=== PATIENT | female | born 1985 | race African-American/Black ===

== ENCOUNTER 2017-12-08 06:18 | Emergency (ER) | payer MEDICAID ==
[~2017-12-08] VITALS: Ht 160 cm; Wt 106.0 kg
[2017-12-08 06:31] VITALS: BP 122/77
== END 2017-12-08 09:23 | disposition left against medical advice (07) ==
LOC: ER 06:18
DX: M54.9 Dorsalgia, unspecified (principal); Z53.21 Procedure and treatment not carried out due to patient leaving prior to being seen by health care provider

== ENCOUNTER 2018-05-31 19:41 | Emergency (ER) | payer MEDICAID ==
[~2018-05-31] VITALS: Ht 160 cm; Wt 114.0 kg
[2018-05-31 23:10] LABS: BASOPHILS % 0.2 % (0.0-2.0); EOSINOPHILS % 2.3 % (0.0-5.0); HEMATOCRIT. 36.3 % (36.0-48.0); HEMOGLOBIN. 11.8 g/dL (12.0-16.0); LYMPHOCYTES % 38.5 % (20.0-50.0); MEAN CORPUSCULAR VOLUME 83.1 fL (81.0-99.0); MEAN PLATELET VOLUME 7.7 fl (7.4-10.4); MONOCYTES % 4.1 % (2.0-8.0); NEUTROPHILS % 54.9 % (40.0-76.0); PLATELET 313 x1000/uL (130-400); RED BLOOD CELL COUNT 4.37 mill/uL (4.2-5.4); RED CELL DISTRIBUTION WIDTH 14.9 % (11.6-14.6)
[2018-05-31 23:34] LABS: HCG SCREEN NEGATIVE
[2018-06-01 00:10] VITALS: BP 137/76
[2018-06-01] MEDS ORDERED: KETOROLAC 60MG/2ML VIAL IM ONE (00:15)
== END 2018-06-01 01:59 | disposition home or self-care (01) ==
LOC: ER 19:41
DX: N93.8 Other specified abnormal uterine and vaginal bleeding (principal); F12.10 Cannabis abuse, uncomplicated; Z90.49 Acquired absence of other specified parts of digestive tract
CPT/HCPCS: 36415; 76830; 76856; 84703; 85025; 96372; 99285; J1885

== ENCOUNTER 2020-09-08 16:24 | Emergency (ER) | payer MEDICAID ==
[~2020-09-08] VITALS: Ht 162.6 cm; Wt 114.0 kg
[2020-09-08 16:37] VITALS: BP 119/76
[2020-09-08] MEDS ORDERED: ACETAMINOPHEN 325MG TABLET PO ONE (16:45)
== END 2020-09-08 19:50 | disposition home or self-care (01) ==
LOC: ER 16:24
DX: M25.562 Pain in left knee (principal); Z87.19 Personal history of other diseases of the digestive system; Z90.49 Acquired absence of other specified parts of digestive tract; Z98.890 Other specified postprocedural states; F12.10 Cannabis abuse, uncomplicated
CPT/HCPCS: 73562; 93971; 99284